=== PATIENT | male | born 1960 | race Caucasian/White ===

== ENCOUNTER 2020-01-14 13:30 | Inpatient (IN) ==
[2020-01-14] MEDS ORDERED: MORPHINE 4 MG/1 ML VIAL IV ONE (14:07)
[2020-01-14] MEDS ORDERED: ONDANSETRON 4 MG/2 ML VIAL IV ONE (14:07)
[2020-01-14] MEDS ORDERED: SODIUM CHLORIDE 0.9% 1,000 ML IV STA (14:07)
[2020-01-14 14:59] LABS: Basophils % 0.3 % (0.0-0.8); Eosinophils # 0.1 10*3/uL (0.0-0.87); Eosinophils % 0.8 % (0.00-10.9); Hematocrit 50.9 VOL% (42.0-52.0); Hemoglobin 17.5 GM/DL (14.0-18.0); Immature Granulocytes % 0.6 %; Immature Granulocytes Absolute 0.06 #; Lymphocytes # 1.3 10*3/uL (1.4-4.0); Lymphocytes % 13.6 % (21.2-54.2); Mean Corpuscular HGB Conc 34.4 GM/DL (32-36); Mean Corpuscular Volume 88.1 FL (87-102); Mean Platelet Volume 8.7 FL (9.6-12.0); Neutrophils % 79.7 % (38.7-73.9); Platelet Count 308 T/CUMM (130-400); Red Blood Count 5.78 MC/CUMM (3.8-5.5); White Blood Count 9.3 T/CUMM (4-12)
[2020-01-14 15:11] LABS: INR 1.3
[2020-01-14 15:23] LABS: Albumin 3.4 G/DL (3.4-5.0); Bilirubin,Total 0.4 MG/DL (0.2-1.0); Osmolality,Calculated 276.5 MOS/KG (273-304); Total Protein 7.3 G/DL (6.4-8.3)
[2020-01-14] MEDS ORDERED: VANCOMYCIN INJ 1,000 MG in SODIUM CHLORIDE 0.9% 250 ML IV STA (15:25)
[2020-01-14] MEDS ORDERED: LORazepam 1 MG TABLET PO STA (15:45)
[2020-01-14] MEDS ORDERED: CALCIUM CARBONATE CHEW 500 MG TABLET PO PRN (15:55)
[2020-01-14] MEDS ORDERED: DEXTROSE 50% 25 GM/50 ML VIAL IV PRN (15:55)
[2020-01-14] MEDS ORDERED: BISACODYL 5 MG TABLET PO PRN (15:55)
[2020-01-14] MEDS ORDERED: SIMETHICONE CHEW 125 MG TABLET PO PRN (15:55)
[2020-01-14] MEDS ORDERED: GLUCAGON 1 MG VIAL IM PRN (15:55)
[2020-01-14 17:34] LABS: HIV Antigen/Antibody Result Nonreactive (Nonreactive)
[2020-01-14] MEDS ORDERED: ENOXAPARIN 40 MG/0.4 ML SYRINGE SUBCUT SCH (21:00)
[2020-01-14] MEDS: FLUCONAZOLE 200 MG TABLET PO SCH ×2 (22:01→22:04)
[2020-01-14] MEDS: CLINDAMYCIN INJ 600 MG in PREMIX 1 EACH IV SCH (22:04)
[2020-01-15] MEDS: ALPRAZolam 0.5 MG TABLET PO SCH ×4 (00:31→18:49)
[2020-01-15] MEDS: VANCOMYCIN INJ 1,500 MG in SODIUM CHLORIDE 0.9% 500 ML IV SCH ×2 (00:37→11:58)
[2020-01-15 04:50] LABS: Basophils % 0.4 % (0.0-0.8); Eosinophils # 0.2 10*3/uL (0.0-0.87); Hematocrit 48.6 VOL% (42.0-52.0); Hemoglobin 16.4 GM/DL (14.0-18.0); Immature Granulocytes % 0.6 %; Immature Granulocytes Absolute 0.06 #; Lymphocytes # 2.8 10*3/uL (1.4-4.0); Lymphocytes % 28.5 % (21.2-54.2); Mean Corpuscular HGB Conc 33.7 GM/DL (32-36); Mean Corpuscular Volume 89.5 FL (87-102); Mean Platelet Volume 8.7 FL (9.6-12.0); Monocytes % 8.7 % (1.7-12.7); Neutrophils % 59.8 % (38.7-73.9); Platelet Count 303 T/CUMM (130-400); Red Blood Count 5.43 MC/CUMM (3.8-5.5); Red Cell Distribution Width 13.1 % (9.3-17.3); White Blood Count 9.7 T/CUMM (4-12)
[2020-01-15 05:07] LABS: Calcium 8.6 MG/DL (8.5-10.1); Osmolality,Calculated 272.7 MOS/KG (273-304)
[2020-01-15] MEDS: CLINDAMYCIN INJ 600 MG in PREMIX 1 EACH IV SCH ×3 (05:40→21:35)
[2020-01-15] MEDS: MENTHOL/ZINC OXIDE OINT 71 GM JAR TOP SCH (21:35)
[2020-01-16] MEDS: ALPRAZolam 0.5 MG TABLET PO SCH ×4 (00:30→18:10)
[2020-01-16] MEDS: VANCOMYCIN INJ 1,500 MG in SODIUM CHLORIDE 0.9% 500 ML IV SCH ×2 (00:35→12:20)
[2020-01-16] MEDS ORDERED: EPINEPHrine 1 MG/ML VIAL ONE ×3 (06:13→07:20)
[2020-01-16] MEDS: CLINDAMYCIN INJ 600 MG in PREMIX 1 EACH IV SCH (06:15)
[2020-01-16] MEDS ORDERED: MIDAZOLAM 2 MG/2 ML VIAL ONE (06:31)
[2020-01-16] MEDS ORDERED: fentaNYL 100 MCG/2 ML VIAL ONE ×2 (06:32→07:43)
[2020-01-16] MEDS ORDERED: propofoL 200 MG/20 ML VIAL IV ONE (06:35)
[2020-01-16] MEDS ORDERED: LIDOCAINE 2% 5 ML VIAL ONE (06:35)
[2020-01-16] MEDS ORDERED: BUPIVACAINE MPF 0.25% 30 ML VIAL ONE (06:44)
[2020-01-16] MEDS ORDERED: LIDOCAINE 1%/EPI INJ 20 ML VIAL ONE (06:45)
[2020-01-16] MEDS ORDERED: ceFAZolin 1,000 MG VIAL ONE (07:42)
[2020-01-16] MEDS ORDERED: KETOROLAC 30 MG/1 ML VIAL ONE (07:42)
[2020-01-16] MEDS ORDERED: THROMBIN TOPICAL (RECOMBINANT) 5,000 UNIT VIAL TOP ONE (07:59)
[2020-01-16] MEDS ORDERED: SPRAY APPLICATOR KIT 1 EACH MISC ONE (07:59)
[2020-01-16] MEDS: MENTHOL/ZINC OXIDE OINT 71 GM JAR TOP SCH ×2 (09:59→21:47)
[2020-01-16] MEDS: FLUCONAZOLE 200 MG TABLET PO SCH (09:59)
[2020-01-16] MEDS: cefTRIAXone 2,000 MG in SYRINGE 1 EACH IV SCH (15:30)
[2020-01-17] MEDS: ALPRAZolam 0.5 MG TABLET PO SCH ×3 (00:26→12:44)
[2020-01-17 04:50] LABS: Basophils % 0.2 % (0.0-0.8); Eosinophils % 0.1 % (0.00-10.9); Hematocrit 46.7 VOL% (42.0-52.0); Immature Granulocytes % 0.7 %; Immature Granulocytes Absolute 0.11 #; Lymphocytes # 1.7 10*3/uL (1.4-4.0); Mean Corpuscular HGB Conc 34.3 GM/DL (32-36); Mean Corpuscular Volume 88.6 FL (87-102); Mean Platelet Volume 8.9 FL (9.6-12.0); Monocytes % 4.9 % (1.7-12.7); Neutrophils % 84.1 % (38.7-73.9); Platelet Count 323 T/CUMM (130-400); Red Blood Count 5.27 MC/CUMM (3.8-5.5); Red Cell Distribution Width 12.6 % (9.3-17.3); White Blood Count 16.8 T/CUMM (4-12)
[2020-01-17 05:19] LABS: Calcium 8.6 MG/DL (8.5-10.1); Osmolality,Calculated 277.8 MOS/KG (273-304)
[2020-01-17] MEDS: MENTHOL/ZINC OXIDE OINT 71 GM JAR TOP SCH (10:49)
[2020-01-17] MEDS: cefTRIAXone 2,000 MG in SYRINGE 1 EACH IV SCH (15:22)
[2020-01-17 15:27] VITALS: BP 138/83
== END 2020-01-17 18:09 | disposition home or self-care (01) | DRG 904 ==
LOC: N.ED 13:30 → SUATTDRO 15:55 → N.EDINP 15:55 → N.3E 17:20
PROVIDERS: ADMIT Internal Medicine; ATTEND Internal Medicine